=== PATIENT | female | born 1945 | race Caucasian/White ===

== ENCOUNTER 2016-08-11 07:51 | Inpatient (IN) | payer OTHER, SELFPAY ==
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
--- NOTE | ~2016-08-11 | DS ---
Discharge Summary [facility] [address] [place]. [address] NAME: MARE CORTEZ : 41 STATUS : ADM IN PAT#: [id number] AGE: 71 ADM/REG DATE : 08/11/16 MR#: [id number] REPORT SERV DATE: 08/14/16 DICTATED BY: Jason QUINN DATE: 08/14/16 REPORT STATUS : Draft TRANSCRIBED BY: MODPorfirio DATE: 08/14/16 ADMISSION DATE: 08/11/2016 DISCHARGE DATE: 08/14/2016 DISCHARGE DIAGNOSES: 1. Acute hypoxic hypercapnic respiratory failure, resolved. 2. Coronary disease with prior coronary artery bypass graft. 3. Suspected chronic obstructive pulmonary disease. 4. Ongoing tobacco abuse. 5. Type 2 diabetes, secondary to active prednisone use. 6. Acute on chronic systolic heart failure, ejection fraction 41%. 7. Demand ischemia secondary to hypoxia. 8. Chronic kidney disease, stage 2 to 3. ACTIVE CONSULTS: None. PROCEDURES: Myocardial perfusion imaging. BRIEF HOSPITAL COURSE: A 71-year-old female with known coronary disease and ongoing tobacco abuse was admitted with respiratory failure with x-ray evidence of pulmonary vascular congestion. The patient was treated with a combination of low-dose DARINEL inhibition, active diuretics, and oral Coreg. She responded very well to treatment with significant improvement in her oxygenation and symptoms. Because of the nature of her symptoms and history of coronary artery disease it was felt necessary to rule out ischemia as a possible underlying cause particularly given the number of years since her bypass surgery coupled with her ongoing tobacco abuse. Her myocardial perfusion imaging showed no evidence of ischemia, but quoted an ejection fraction of 41%. Recommendations were for medical management for the patient's creatinine, and she has tolerated low-dose DARINEL inhibition and this will be continued, we will couple this with active diuretic therapy, statin therapy, and Coreg. We strongly encouraged the patient to discontinue smoking. She did not qualify for home O2. The patient was felt stable to be discharged home on the with outpatient followup with her primary care provider in two to three weeks. DISCHARGE MEDICATIONS: Prescriptions provided at discharge include: 1. Aspirin 325 mg daily. 2. Lipitor 40 mg daily. 3. Coreg 6.25 mg b.i.d. 4. Lasix 40 mg q.a.m. 5. Lisinopril 5 mg daily. Because of the likelihood that she has underlying COPD with a mild exacerbation she will get three additional days of prednisone at 20 mg daily, then discontinue, and she has two days to finish on a five-day Levaquin course, this will also be provided at discharge. Further recommendations for ongoing treatment pending outpatient followup with her primary care provider. Of note, discharge creatinine is 1.22. Discharge Summary [address] [address] NAME: MARE CORTEZ : 41 STATUS : ADM IN [facility]#: [id number] AGE: 71 ADM/REG DATE : 08/11/16 MR#: [id number] REPORT SERV DATE: 08/14/16 DICTATED BY: Jason QUINN DATE: 08/14/16 REPORT STATUS : Draft TRANSCRIBED BY: VALDO DATE: 08/14/16 Of note, greater than 30 minutes was required to prepare discharge, to do discharge summary, to complete prescriptions, reconcile medications, and funeral counselor the patient regarding her new medications, and smoking cessation. [facility]/VALDO Jason Quinn M.D. / [id number] CC: Megha Xie M.D.
[2016-08-11 07:53] LABS: ALLENS TEST Pos; BE (BASE EXCESS) -6.9 MEQ/L (0 +/- 2.5); CARBOXYHEMOGLOBIN 2.3 % (0-3); DEVICE NRB; HCO3 (ACTUAL BICARBONATE) 23.6 MEQ/L (23-27); HEMOBLOGIN CONTENT 12.9 G/DL (12-16); INSTRUMENT SERIAL # 8087; METHEMOGLOBIN 0.1 % (0-3); O2 CONTENT 16.9 VOL% (18-24); OPERATOR ID 14335; PCO2 (CO2 TENSION) 73 MMHG (35-45); PO2 (O2 TENSION) 95 MMHG (79-93); SAMPLE Arterial; pH 7.13 (7.37-7.43)
[2016-08-11] MEDS ORDERED: *UNABLE3 (08:32)
[2016-08-11 08:33] LABS: BASOPHILS 0.3 %; BASOPHILS ABSOLUTE 0.05 10/3/uL (0.0-0.16); EOSINOPHILS 1.1 %; EOSINOPHILS ABSOLUTE 0.18 10/3/uL (0.0-0.53); HEMOGLOBIN 12.1 g/dL (12.0-16.0); IMMATURE GRANULOCYTES 0.3 %; IMMATURE GRANULOCYTES ABSOLUTE 0.05 10/3/uL (0.0-0.11); LYMPHOCYTES 26.5 %; LYMPHOCYTES ABSOLUTE 4.36 10/3/uL (0.67-4.30); MEAN CORPUS HGB CONC 31.8 g/dL (32.0-36.0); MEAN CORPUSCULAR HEMOGLOB 28.6 pg (26.0-34.0); MEAN CORPUSCULAR VOLUME 89.8 fL (80-100); MEAN PLATELET VOLUME 9.1 fL (9.2-13.0); MONOCYTES 5.7 %; MONOCYTES ABSOLUTE 0.93 10/3/uL (0.21-1.20); NEUTROPHILS 66.1 %; NEUTROPHILS ABSOLUTE 10.88 10/3/uL (2.02-8.40); PLATELET COUNT 377 10/3/uL (150-400); RBC DISTRIBUTION WIDTH 13.1 % (12.0-16.0); RED CELL COUNT 4.23 10/6/uL (4.0-5.6); WHITE BLOOD CELLS 16.5 10/3/uL (4.5-10.5)
[2016-08-11 08:36] LABS: MANUAL DIFF NO %
[2016-08-11 08:37] LABS: ASCORBIC ACID (UR NOT ORDER) NEG (NEG); BILIRUBIN, URINE NEGATIVE (NEG); ER URINALYSIS TAT 0 Hrs 00 Mins; KETONE, URINE NEGATIVE (NEG); LEUKOCYTE ESTERASE(NOT OR TRACE (NEG); NITRITE (URINE) NEG (NEG); WBC (NOT ORDERED) (RFLEX) < 1 (0-5)
[2016-08-11 08:50] LABS: INTERNATIONAL NORMAL RATI 1.1 UNITS (-); PARTIAL THROMBO TIME 26.9 SEC (22.5-37.2); PROTIME (NOT ORD) 14.1 SEC (12.0-14.5)
[2016-08-11 08:55] LABS: BUN (BLOOD UREA NITROGEN) 11 MG/DL (6-23); CALCIUM, SERUM 8.7 MG/DL (8.5-10.4); CHEST PAIN PROFILE TAT 0 Hrs 28 Mins; CHLORIDE, SERUM 106 MMOL/L (96-112); CO2 (CARBON DIOXIDE) 26 MMOL/L (24-34); CREATININE 1.33 MG/DL (0.55-1.02); GFR AFRICAN AMERICAN 46 ML/MIN (>=60); GFR NON AFRICAN AMERICAN 40 ML/MIN (>=60); GLUCOSE, SERUM 334 MG/DL (60-99); POTASSIUM, SERUM 4.1 MMOL/L (3.5-5.3); SODIUM, SERUM 140 MMOL/L (135-148); TROPONIN I <0.02 NG/ML (<0.05)
[2016-08-11 08:57] LABS: BE (BASE EXCESS) -4.7 MEQ/L (0 +/- 2.5); CARBOXYHEMOGLOBIN 2.4 % (0-3); HEMOBLOGIN CONTENT 12.3 G/DL (12-16); INSTRUMENT SERIAL # 8087; METHEMOGLOBIN 0.2 % (0-3); O2 CONTENT 16.1 VOL% (18-24); PCO2 (CO2 TENSION) 54 MMHG (35-45); PO2 (O2 TENSION) 89 MMHG (79-93); SAMPLE Arterial; pH 7.25 (7.37-7.43)
[2016-08-11 08:58] LABS: ALLENS TEST Pos; BIPAP 18/6 cm.H2O; OPERATOR ID 14335
[2016-08-11 14:46] LABS: ULTRASENSITIVE TSH 0.757 MCIU/ML (0.358-3.740)
[2016-08-11 14:47] LABS: TROPONIN I 0.11 NG/ML (<0.05)
[2016-08-11 15:37] LABS: ALLENS TEST Pos; BE (BASE EXCESS) -2.3 MEQ/L (0 +/- 2.5); BIPAP 18/6 cm.H2O; CARBOXYHEMOGLOBIN 0.3 % (0-3); HCO3 (ACTUAL BICARBONATE) 21.5 MEQ/L (23-27); HEMOBLOGIN CONTENT 11.6 G/DL (12-16); INSTRUMENT SERIAL # 8083; METHEMOGLOBIN 0.3 % (0-3); O2 CONTENT 16.1 VOL% (18-24); OPERATOR ID 32199; PCO2 (CO2 TENSION) 33 MMHG (35-45); PO2 (O2 TENSION) 114 MMHG (79-93); SAMPLE Arterial; pH 7.43 (7.37-7.43)
[2016-08-11 16:05] LABS: PROCALCITONIN 1.4 ng/mL (<0.5)
[2016-08-12 04:07] LABS: ALLENS TEST Pos; BE (BASE EXCESS) 2.3 MEQ/L (0 +/- 2.5); CARBOXYHEMOGLOBIN 0.6 % (0-3); DEVICE NC; HCO3 (ACTUAL BICARBONATE) 25.1 MEQ/L (23-27); HEMOBLOGIN CONTENT 11.2 G/DL (12-16); INSTRUMENT SERIAL # 8083; O2 CONTENT 14.9 VOL% (18-24); OPERATOR ID 14661; PCO2 (CO2 TENSION) 33 MMHG (35-45); PO2 (O2 TENSION) 69 MMHG (79-93); SAMPLE Arterial
[2016-08-12 06:57] LABS: HEMATOCRIT 30.7 % (36.0-48.0); HEMOGLOBIN 10.1 g/dL (12.0-16.0); MANUAL DIFF YES %; MEAN CORPUS HGB CONC 32.9 g/dL (32.0-36.0); MEAN CORPUSCULAR HEMOGLOB 27.8 pg (26.0-34.0); MEAN CORPUSCULAR VOLUME 84.6 fL (80-100); MEAN PLATELET VOLUME 8.9 fL (9.2-13.0); PLATELET COUNT 274 10/3/uL (150-400); RBC DISTRIBUTION WIDTH 13.3 % (12.0-16.0); RED CELL COUNT 3.63 10/6/uL (4.0-5.6); WHITE BLOOD CELLS 22.1 10/3/uL (4.5-10.5)
[2016-08-12 07:18] LABS: BUN (BLOOD UREA NITROGEN) 20 MG/DL (6-23); CALCIUM, SERUM 8.4 MG/DL (8.5-10.4); CHLORIDE, SERUM 101 MMOL/L (96-112); CHOLESTEROL 192 MG/DL (< 200); CO2 (CARBON DIOXIDE) 25 MMOL/L (24-34); CREATININE 1.38 MG/DL (0.55-1.02); GFR AFRICAN AMERICAN 44 ML/MIN (>=60); GFR NON AFRICAN AMERICAN 38 ML/MIN (>=60); GLUCOSE, SERUM 184 MG/DL (60-99); HDL CHOLESTEROL 48 MG/DL (> 49); LDL CHOLESTEROL 128 MG/DL (< 130); NON-HDL CHOLESTEROL 144 MG/DL (< 160); SODIUM, SERUM 138 MMOL/L (135-148); TRIGLYCERIDE 83 MG/DL (< 150); TROPONIN I 0.07 NG/ML (<0.05)
[2016-08-12 09:33] LABS: BAND NEUTROPHILS 1 %; LYMPHOCYTES 3 %; LYMPHOCYTES ABSOLUTE (CALC) 0.66 10/3/uL (0.67-4.30); MONOCYTES 4 %; MONOCYTES ABSOLUTE (CALC) 0.88 10/3/uL (0.21-1.20); NEUTROPHILS ABSOLUTE (CALC) 20.55 10/3/uL (2.02-8.40); PLATELET ESTIMATE ADQ (ADEQUATE); RBC MORPHOLOGY NORM (NORMAL); SEGMENTED NEUTROPHIL (0) 92 %; TOTAL NUCLEATED CELLS 100
[2016-08-12] MEDS ORDERED: BEN25 PO (13:47)
[2016-08-12] MEDS ORDERED: CENTRUM PO (13:47)
[2016-08-12] MEDS ORDERED: MULTIPLE SUPPLEMENTS PO (13:48)
[2016-08-13 00:26] LABS: POTASSIUM, SERUM 4.6 MMOL/L (3.5-5.3)
[2016-08-13 04:23] LABS: HEMATOCRIT 32.8 % (36.0-48.0); HEMOGLOBIN 10.9 g/dL (12.0-16.0); MEAN CORPUS HGB CONC 33.2 g/dL (32.0-36.0); MEAN CORPUSCULAR HEMOGLOB 28.5 pg (26.0-34.0); MEAN CORPUSCULAR VOLUME 85.6 fL (80-100); MEAN PLATELET VOLUME 9.4 fL (9.2-13.0); PLATELET COUNT 311 10/3/uL (150-400); RBC DISTRIBUTION WIDTH 13.5 % (12.0-16.0); RED CELL COUNT 3.83 10/6/uL (4.0-5.6); WHITE BLOOD CELLS 23.7 10/3/uL (4.5-10.5)
[2016-08-13 04:25] LABS: MANUAL DIFF YES %
[2016-08-13 04:39] LABS: CHLORIDE, SERUM 100 MMOL/L (96-112); CO2 (CARBON DIOXIDE) 25 MMOL/L (24-34); CREATININE 1.55 MG/DL (0.55-1.02); GFR AFRICAN AMERICAN 38 ML/MIN (>=60); GFR NON AFRICAN AMERICAN 33 ML/MIN (>=60); GLUCOSE, SERUM 206 MG/DL (60-99); POTASSIUM, SERUM 3.9 MMOL/L (3.5-5.3); SODIUM, SERUM 138 MMOL/L (135-148)
[2016-08-13 04:44] LABS: BUN (BLOOD UREA NITROGEN) 33 MG/DL (6-23); CALCIUM, SERUM 9.4 MG/DL (8.5-10.4)
[2016-08-13 05:07] LABS: BAND NEUTROPHILS 2 %; LYMPHOCYTES 4 %; LYMPHOCYTES ABSOLUTE (CALC) 0.95 10/3/uL (0.67-4.30); MONOCYTES 2 %; MONOCYTES ABSOLUTE (CALC) 0.47 10/3/uL (0.21-1.20); NEUTROPHILS ABSOLUTE (CALC) 22.28 10/3/uL (2.02-8.40); PLATELET ESTIMATE ADQ (ADEQUATE); RBC MORPHOLOGY NORM (NORMAL); SEGMENTED NEUTROPHIL (0) 92 %; TOTAL NUCLEATED CELLS 100
[2016-08-14 05:58] LABS: BASOPHILS 0.1 %; BASOPHILS ABSOLUTE 0.01 10/3/uL (0.0-0.16); EOSINOPHILS 0 %; HEMATOCRIT 34.6 % (36.0-48.0); HEMOGLOBIN 11.3 g/dL (12.0-16.0); IMMATURE GRANULOCYTES 0.3 %; IMMATURE GRANULOCYTES ABSOLUTE 0.05 10/3/uL (0.0-0.11); LYMPHOCYTES 7.5 %; MEAN CORPUS HGB CONC 32.7 g/dL (32.0-36.0); MEAN CORPUSCULAR HEMOGLOB 28.3 pg (26.0-34.0); MEAN CORPUSCULAR VOLUME 86.5 fL (80-100); MEAN PLATELET VOLUME 8.9 fL (9.2-13.0); MONOCYTES 7.2 %; MONOCYTES ABSOLUTE 1.35 10/3/uL (0.21-1.20); NEUTROPHILS 84.9 %; NEUTROPHILS ABSOLUTE 15.98 10/3/uL (2.02-8.40); PLATELET COUNT 298 10/3/uL (150-400); RBC DISTRIBUTION WIDTH 13.4 % (12.0-16.0); WHITE BLOOD CELLS 18.8 10/3/uL (4.5-10.5)
[2016-08-14 06:00] LABS: MANUAL DIFF NO %
[2016-08-14 06:25] LABS: BUN (BLOOD UREA NITROGEN) 35 MG/DL (6-23); CALCIUM, SERUM 8.9 MG/DL (8.5-10.4); CHLORIDE, SERUM 102 MMOL/L (96-112); CO2 (CARBON DIOXIDE) 27 MMOL/L (24-34); CREATININE 1.22 MG/DL (0.55-1.02); GFR AFRICAN AMERICAN 51 ML/MIN (>=60); GFR NON AFRICAN AMERICAN 44 ML/MIN (>=60); SODIUM, SERUM 141 MMOL/L (135-148)
[2016-08-14 06:28] LABS: GLUCOSE, SERUM 114 MG/DL (60-99)
[2016-08-14] MEDS ORDERED: ASAEC PO (09:15)
[2016-08-14] MEDS ORDERED: COREG6 PO (09:19)
[2016-08-14] MEDS ORDERED: LIPITOR40 PO (09:19)
[2016-08-14] MEDS ORDERED: L40 PO (09:20)
[2016-08-14] MEDS ORDERED: PRIN5 PO (09:21)
[2016-08-14] MEDS ORDERED: P20 PO (09:23)
[2016-08-14] MEDS ORDERED: LEVAQUIN750 MG PO (09:26)
[2016-12-03] MEDS ORDERED: KLOR-CON M2020 MEQ PO (13:51)
[2016-12-10] MEDS ORDERED: PLAVIX PO (08:28)
== END 2016-08-14 13:03 | disposition home or self-care (01) | DRG 291 ==
LOC: ER 07:51 → IMCU 10:30 → 7NO 08-12 21:17
PROVIDERS: Emergency Medicine; Internal Medicine
DX: I13.0 Hypertensive heart and chronic kidney disease with heart failure and stage 1 through stage 4 chronic kidney disease, or unspecified chronic kidney disease (principal); I50.43 Acute on chronic combined systolic (congestive) and diastolic (congestive) heart failure; J96.01 Acute respiratory failure with hypoxia; J96.02 Acute respiratory failure with hypercapnia; E87.2 Acidosis; I24.8 Other forms of acute ischemic heart disease; J44.1 Chronic obstructive pulmonary disease with (acute) exacerbation; N18.3 Chronic kidney disease, stage 3 (moderate); I25.10 Atherosclerotic heart disease of native coronary artery without angina pectoris; F17.210 Nicotine dependence, cigarettes, uncomplicated; I25.2 Old myocardial infarction; I25.5 Ischemic cardiomyopathy; D72.829 Elevated white blood cell count, unspecified; T38.0X5A Adverse effect of glucocorticoids and synthetic analogues, initial encounter; Z91.19 Patient's noncompliance with other medical treatment and regimen; Z95.1 Presence of aortocoronary bypass graft
CPT/HCPCS: 36600; 71010; 78452; 80048; 80061; 81001; 82805; 82962; 83036; 83735; 83880; 84132; 84145; 84443; 84484; 85025; 85610; 85730; 87641; 93005; 93017; 93306; 94640; 94660; 96374; 97165-GO; 99291; A9270-GY; A9502; J0153; J1956; J2930

== ENCOUNTER 2016-09-03 12:12 | Inpatient (IN) | payer OTHER, SELFPAY ==
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
--- NOTE | ~2016-09-03 | DS ---
Discharge Summary [facility] [address] [place]. [address] NAME: MARE CORTEZ : 41 STATUS : DIS IN PAT#: [id number] AGE: 71 ADM/REG DATE : 09/03/16 MR#: [id number] REPORT SERV DATE: 09/11/16 DICTATED BY: KELIN PELAEZ DATE: 09/10/16 REPORT STATUS : Draft TRANSCRIBED BY: MODL DATE: 09/10/16 ADMISSION DATE: 09/03/2016 DISCHARGE DATE: 09/10/2016 CONDITION ON DISCHARGE: Discharged to home. ADVICE UPON DISCHARGE: The patient to follow up with her oral surgeon within the next few days as scheduled so that she can have her teeth pulled before she is scheduled to see her modeling and simulation analyst, so that she can have her mitral valve replaced at a later time. DISPOSITION: Stable. DIAGNOSES ON DISCHARGE: 1. Acute systolic heart failure-resolved. Chronic systolic heart failure with an ejection fraction of about 40%-45%, which is stable. 2. Severe mitral regurgitation-the patient is definitely a candidate for mitral valve replacement, but before this her dental situation has to be addressed and the patient is actually being scheduled for dental extraction within the next few days, so she can have follow up with her modeling and simulation analyst and then later the CT surgeon, so she can have her mitral valve replaced. The patient is aware of this. 3. Acute hypoxic respiratory failure secondary to flash pulmonary edema, which has completely resolved. 4. Coronary artery disease, status post CABG in the past-this is stable. 5. Chronic kidney disease, stage 3, which is stable. 6. Chronic obstructive pulmonary disease which is stable. 7. Urinary tract infection with urine culture positive for E coli that is sensitive to cephalosporins. The patient has already received three days of IV Rocephin, so she will be sent home on Keflex 500 mg p.o. b.i.d. or cefuroxime 500 mg p.o. b.i.d. for four more days to finish the treatment for this urinary tract infection. CONSULTS OBTAINED DURING HOSPITALIZATION: Dr. Miramontes with [facility] and Cardiothoracic Surgery. PROCEDURES THAT PATIENT UNDERWENT DURING THIS HOSPITALIZATION: Include left heart catheterization by Dr. Bolton, ALOK and also a transthoracic echocardiogram. 1. Left heart catheterization showed coronary artery disease as described in the intermittent discharge summary with diffuse CAD basically. 2. Transthoracic echocardiogram showed mild LV enlargement with decrease in systolic function and inferior and inferolateral hypokinesis with an EF of about 40%. The patient does have LAE because of the severe mitral regurgitation. 3. ALOK showed EF of 43%, which is slightly better than 40%, I understand. No thrombus was found in either of the valves and mitral valve was structurally normal, but there was eccentric anteriorly directed severe mitral regurgitation and likely a PFO. The patient will hence require a valve replacement at a later time, which is going to be very soon as deemed by Cardiology and Cardiothoracic Surgery. BRIEF HOSPITAL COURSE: Please refer to interim discharge summary dictated by Dr. Butler on Discharge Summary [address] [address] NAME: MARE CORTEZ : 41 STATUS : DIS IN [facility]#: [id number] AGE: 71 ADM/REG DATE : 09/03/16 MR#: [id number] REPORT SERV DATE: 09/11/16 DICTATED BY: KELIN PELAEZ DATE: 09/10/16 REPORT STATUS : Draft TRANSCRIBED BY: VALDO DATE: 09/10/16 09/07/2016. I took over this patient's care on 09/08/2016. On the , , and , the patient's condition has pretty much remained very stable. She has been asymptomatic throughout and has tolerated her food well without any nausea, vomiting. She is ambulatory and she has no dizziness whatsoever, hence the patient is actually being discharged on 09/10/2016 as her valve replacement has been postponed given her dental status. She does have dental caries and two carious teeth, I believe, which do need extraction CLAUDIO and this will be accomplished as an outpatient. Hence, the patient is being sent home on the following medications. Her home medications now will include the following. 1. Cefuroxime 500 mg p.o. b.i.d. for four more days to finish up her treatment for UTI with E coli. 2. Benadryl 25 mg p.o. daily p.r.n. 3. Lipitor 40 mg p.o. daily. 4. Coreg 6.25 mg p.o. b.i.d. 5. Lisinopril 5 mg once a day. 6. Lasix 20 mg once a day. 7. Aspirin 81 mg once a day. The most recent labs that I have on this patient include the following. CBC that shows a WBC count of 7.9, hemoglobin 10.3, hematocrit 32.7, and platelet count of 303. Electrolyte profile that shows completely normal electrolytes BUN is 17, creatinine is 1.03, which is her baseline. As mentioned above, urine culture is positive for greater than 100,000 colony count per mL of E coli, which is pansensitive and sensitive to cephalosporins and hence the treatment. I have spent about 40 minutes in coordinating discharge care of this patient including face- to-face encounter and summarizing this discharge. TRINI/VALDO Kelin Pelaez M.D. / [id number] CC: Kelin Pelaez M.D.
--- NOTE | ~2016-09-03 | IDS ---
Interim Discharge Summary [facility] [address] [place]. [address] NAME: MARE CORTEZ : 43 STATUS : ADM Gil PAT#: [id number] AGE: 71 ADM/REG DATE : 09/03/16 MR#: [id number] REPORT SERV DATE: 09/08/16 DICTATED BY: DIEGO BECK II DATE: 09/07/16 REPORT STATUS : Draft TRANSCRIBED BY: MODL DATE: 09/07/16 ADMISSION DATE: 09/03/2016 DISCHARGE DATE: DATE OF INTERIM: 09/07/2016. INTERIM DIAGNOSES: 1. Acute systolic with EF of 43%. 2. Severe eccentric mitral regurgitation. 3. Acute hypoxic respiratory failure secondary to flash pulmonary edema on admission, now resolved. 4. Multivessel coronary artery disease with history of bypass, status post cardiac cath this admission, results below. 5. Chronic kidney disease stage II to III. 6. Chronic obstructive pulmonary disease. 7. Urinary tract infection, culture pending. 8. Poor dentition. CONSULTS: Dr. Miramontes with [facility] and Cardiothoracic Surgery. PROCEDURES: 1. Left heart catheterization by Dr. Bolton showing a 100% proximal RCA with patent graft to runoff vessel. 70% distal LAD with no patent graft to runoff vessel. 70% mid left circumflex with no evidence of prior grafting. Current grafts are CHAHAL to LAD, which is patent and SVG to distal RCA patent with nonobstructive anastomotic lesion. LVEDP 9. 2. Transthoracic echo showing mild LV enlargement, mild decrease in systolic function. Inferior and inferolateral hypokinesis. EF 40%. Left atrial enlargement. Aortic valve sclerosis without stenosis. 3. ALOK showing EF 43% and previously shown wall motion abnormalities consistent with prior [place]. No thrombus in left atrial appendage. Mitral valve was structurally normal; however, there was eccentric anteriorly directed severe mitral regurgitation and likely patent Chen ovale. BRIEF HISTORY OF PRESENT ILLNESS: The patient is a 71-year-old female who presented to [facility] due to acute shortness of breath concerning for flash pulmonary edema. For detailed history and physical examination, please see Dr. Cleary's note from 09/03/2016. HOSPITAL COURSE: On admission, she had a pH of 7.16, pCO2 of 55, PO2 of 75. BNP 1150. Chest x-ray with venous congestion and no infiltrate. CT of the chest showed no lung masses or infiltrates, essentially normal except for minimal bilateral pleural effusions. She was on 15 L by face mask and quickly able to be titrated off with diuretics. [facility] was consulted and concern for incomplete cardiac workup for recently diagnosed acute CHF as well as flash pulmonary edema in setting of likely jeagvngn-wo-oxauii mitral regurg. Cardiac cath and ALOK, results noted above, was subsequently performed showing severe eccentric mitral regurg and 70% LAD and left circumflex. Currently, Cardiothoracic Surgery has been consulted for Interim Discharge Summary [address] [address] NAME: MARE CORTEZ : 43 STATUS : ADM Gil PAT#: [id number] AGE: 71 ADM/REG DATE : 09/03/16 MR#: [id number] REPORT SERV DATE: 09/08/16 DICTATED BY: DIEGO BECK II DATE: 09/07/16 REPORT STATUS : Draft TRANSCRIBED BY: VALDO DATE: 09/07/16 consideration for possible mitral valve surgery or single-vessel bypass. During this time, she was also found have UTI and was placed on Rocephin, currently urine culture pending, growing gram-negative bacilli. Overall pending cardiothoracic consult. One of my colleagues from the hospitalist service will be taking over starting tomorrow. DELIO/VALDO Diego Beck II, MD / [id number]
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
--- NOTE | ~2016-09-03 | TEE ---
Transesophageal Echocardiogram [facility] [address] [place]. [address] NAME: MARE CORTEZ : 43 STATUS : ADM Gil PAT#: [id number] AGE: 71 ADM/REG DATE : 09/03/16 MR#: [id number] REPORT SERV DATE: 09/07/16 DICTATED BY: DATE: REPORT STATUS : Draft TRANSCRIBED BY: MODL DATE: 09/07/16 CHIEF COMPLAINT/REASON FOR STUDY: Assessment of mitral regurgitation. After obtaining informed consent, anesthesia was administered with IV propofol to achieve adequate conscious sedation. The transesophageal probe was readily inserted without complications. Salient 2D echocardiographic windows and 3D echocardiographic windows were obtained including color and Doppler assessment. ECHOCARDIOGRAPHIC FINDINGS: 1. Left ventricular systolic function is moderately decreased with a calculated ejection fraction of 43%. There is an inferior and posterior wall motion abnormality from the level of the septum to the mid wall likely consistent with a prior myocardial infarction. The right ventricle is normal in size and systolic function. 2. The left atrium is dilated in size. There was no evidence of left atrium or left atrial appendage thrombus. The right atrium appeared mildly dilated in size. 3. The left atrial appendage was interrogated at multiple levels and depths and there was no thrombus present in the left atrial appendage at the time of ALOK. 4. The mitral valve was structurally normal. However, there was eccentric anteriorly directed severe mitral regurgitation noted by color flow and Doppler assessment. The full visualization of the jet for PISA calculation could not be performed due to jet eccentricity. 5. The tricuspid valve was normal with preserved leaflet motion. There was no significant tricuspid regurgitation or stenosis seen with color-flow Doppler assessment. 6. Aortic valve was normal and trileaflet without stenosis or regurgitation. 7. The pulmonary valve was well visualized and without significant valvular regurgitation via color flow Doppler assessment. 8. The aorta was normal in caliber; however, there was moderate atherosclerotic plaque visualized within the thoracic aorta. 9. The pericardium was normal. No pericardial effusion was visualized. 10.The intra-atrial septum had small defect with [id number] color flow consistent with a small patent foramen ovale. 11.The right and left superior pulmonary veins were interrogated. There was evidence of systolic flow reversal consistent with severe mitral regurgitation. IMPRESSION: 1. Moderately decreased left ventricular systolic function with a calculated ejection fraction of 43%. 2. Inferior basilar wall motion abnormality. 3. Eccentric severe mitral regurgitation as detailed above. 4. Likely patent foramen ovale. ABEL/VALDO Gisele Rosas M.D. Transesophageal Echocardiogram [address] [address] NAME: MARE CORTEZ : 43 STATUS : ADM Gil PAT#: [id number] AGE: 71 ADM/REG DATE : 09/03/16 MR#: [id number] REPORT SERV DATE: 09/07/16 DICTATED BY: DATE: REPORT STATUS : Draft TRANSCRIBED BY: VALDO DATE: 09/07/16 / [id number] CC: Melo Butler II, MD
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
[2016-09-03 11:06] LABS: ALLENS TEST Pos; BE (BASE EXCESS) -9.5 MEQ/L (0 +/- 2.5); HCO3 (ACTUAL BICARBONATE) 19.2 MEQ/L (23-27); HEMOBLOGIN CONTENT 11.2 G/DL (12-16); INSTRUMENT SERIAL # 8087; METHEMOGLOBIN 0.2 % (0-3); PCO2 (CO2 TENSION) 55 MMHG (35-45); PEEP/CPAP 7.5 cm.H2O; PO2 (O2 TENSION) 75 MMHG (79-93); SAMPLE Arterial; pH 7.16 (7.37-7.43)
[2016-09-03 11:23] LABS: BASOPHILS 0.2 %; BASOPHILS ABSOLUTE 0.02 10/3/uL (0.0-0.16); EOSINOPHILS 2.7 %; EOSINOPHILS ABSOLUTE 0.24 10/3/uL (0.0-0.53); HEMATOCRIT 33.2 % (36.0-48.0); HEMOGLOBIN 10.4 g/dL (12.0-16.0); IMMATURE GRANULOCYTES 0.2 %; IMMATURE GRANULOCYTES ABSOLUTE 0.02 10/3/uL (0.0-0.11); LYMPHOCYTES 21.2 %; LYMPHOCYTES ABSOLUTE 1.87 10/3/uL (0.67-4.30); MEAN CORPUS HGB CONC 31.3 g/dL (32.0-36.0); MEAN PLATELET VOLUME 9.2 fL (9.2-13.0); MONOCYTES 5.4 %; MONOCYTES ABSOLUTE 0.48 10/3/uL (0.21-1.20); NEUTROPHILS 70.3 %; PLATELET COUNT 321 10/3/uL (150-400); RBC DISTRIBUTION WIDTH 14.1 % (12.0-16.0); RED CELL COUNT 3.71 10/6/uL (4.0-5.6)
[2016-09-03 11:34] LABS: MANUAL DIFF NO %; MEAN CORPUSCULAR VOLUME 89.5 fL (80-100); WHITE BLOOD CELLS 8.8 10/3/uL (4.5-10.5)
[2016-09-03 11:38] LABS: INTERNATIONAL NORMAL RATI 1.1 UNITS (-); PARTIAL THROMBO TIME 27.5 SEC (22.5-37.2); PROTIME (NOT ORD) 14.5 SEC (12.0-14.5)
[2016-09-03 11:41] LABS: LACTATE 2.4 MMOL/L (0.3-2.4)
[2016-09-03 11:42] LABS: CALCIUM, SERUM 8.7 MG/DL (8.5-10.4); CHEST PAIN PROFILE TAT 0 Hrs 25 Mins; CHLORIDE, SERUM 109 MMOL/L (96-112); CO2 (CARBON DIOXIDE) 25 MMOL/L (24-34); CREATININE 1.34 MG/DL (0.55-1.02); GFR AFRICAN AMERICAN 45 ML/MIN (>=60); GFR NON AFRICAN AMERICAN 39 ML/MIN (>=60); POTASSIUM, SERUM 4.5 MMOL/L (3.5-5.3); SODIUM, SERUM 143 MMOL/L (135-148); TROPONIN I <0.02 NG/ML (<0.05)
[2016-09-03 11:43] LABS: BUN (BLOOD UREA NITROGEN) 23 MG/DL (6-23); GLUCOSE, SERUM 309 MG/DL (60-99)
[~2016-09-03 12:12] MED LIST: *UNABLE3; ASAEC PO; BEN25 PO; CENTRUM PO; COREG6 PO; L40 PO; LEVAQUIN750 MG PO; LIPITOR40 PO; MULTIPLE SUPPLEMENTS PO; P20 PO; PRIN5 PO
[2016-09-04 04:50] LABS: BASOPHILS 0 %; EOSINOPHILS 0 %; HEMATOCRIT 30.7 % (36.0-48.0); HEMOGLOBIN 9.9 g/dL (12.0-16.0); IMMATURE GRANULOCYTES 0.1 %; IMMATURE GRANULOCYTES ABSOLUTE 0.01 10/3/uL (0.0-0.11); LYMPHOCYTES 8.7 %; LYMPHOCYTES ABSOLUTE 0.84 10/3/uL (0.67-4.30); MEAN CORPUS HGB CONC 32.2 g/dL (32.0-36.0); MEAN PLATELET VOLUME 9.4 fL (9.2-13.0); MONOCYTES 2.6 %; MONOCYTES ABSOLUTE 0.25 10/3/uL (0.21-1.20); NEUTROPHILS 88.6 %; NEUTROPHILS ABSOLUTE 8.52 10/3/uL (2.02-8.40); PLATELET COUNT 292 10/3/uL (150-400); RBC DISTRIBUTION WIDTH 13.7 % (12.0-16.0); RED CELL COUNT 3.54 10/6/uL (4.0-5.6); WHITE BLOOD CELLS 9.6 10/3/uL (4.5-10.5)
[2016-09-04 04:51] LABS: MANUAL DIFF NO %; MEAN CORPUSCULAR VOLUME 86.7 fL (80-100)
[2016-09-04 04:55] LABS: BUN (BLOOD UREA NITROGEN) 22 MG/DL (6-23); CALCIUM, SERUM 8.9 MG/DL (8.5-10.4); CHLORIDE, SERUM 109 MMOL/L (96-112); CO2 (CARBON DIOXIDE) 24 MMOL/L (24-34); GFR AFRICAN AMERICAN 58 ML/MIN (>=60); GFR NON AFRICAN AMERICAN 50 ML/MIN (>=60); GLUCOSE, SERUM 132 MG/DL (60-99); POTASSIUM, SERUM 3.7 MMOL/L (3.5-5.3); SODIUM, SERUM 143 MMOL/L (135-148)
[2016-09-04 17:18] LABS: ALLENS TEST Pos; BE (BASE EXCESS) 1.9 MEQ/L (0 +/- 2.5); CARBOXYHEMOGLOBIN 0.5 % (0-3); HEMOBLOGIN CONTENT 10.3 G/DL (12-16); INSTRUMENT SERIAL # 8083; METHEMOGLOBIN 0.1 % (0-3); O2 CONTENT 13.9 VOL% (18-24); OPERATOR ID 32199; PCO2 (CO2 TENSION) 34 MMHG (35-45); PO2 (O2 TENSION) 80 MMHG (79-93); SAMPLE Arterial; pH 7.49 (7.37-7.43)
[2016-09-05 04:11] LABS: BASOPHILS 0.1 %; BASOPHILS ABSOLUTE 0.01 10/3/uL (0.0-0.16); EOSINOPHILS 0.9 %; EOSINOPHILS ABSOLUTE 0.12 10/3/uL (0.0-0.53); HEMATOCRIT 31.5 % (36.0-48.0); HEMOGLOBIN 10.1 g/dL (12.0-16.0); IMMATURE GRANULOCYTES 0.2 %; IMMATURE GRANULOCYTES ABSOLUTE 0.03 10/3/uL (0.0-0.11); LYMPHOCYTES 28.9 %; LYMPHOCYTES ABSOLUTE 3.77 10/3/uL (0.67-4.30); MEAN CORPUS HGB CONC 32.1 g/dL (32.0-36.0); MEAN CORPUSCULAR HEMOGLOB 28.3 pg (26.0-34.0); MEAN CORPUSCULAR VOLUME 88.2 fL (80-100); MEAN PLATELET VOLUME 9.1 fL (9.2-13.0); MONOCYTES 8.3 %; MONOCYTES ABSOLUTE 1.08 10/3/uL (0.21-1.20); NEUTROPHILS 61.6 %; NEUTROPHILS ABSOLUTE 8.04 10/3/uL (2.02-8.40); PLATELET COUNT 308 10/3/uL (150-400); RBC DISTRIBUTION WIDTH 13.9 % (12.0-16.0); RED CELL COUNT 3.57 10/6/uL (4.0-5.6); WHITE BLOOD CELLS 13.1 10/3/uL (4.5-10.5)
[2016-09-05 04:12] LABS: MANUAL DIFF NO %
[2016-09-05 04:23] LABS: CALCIUM, SERUM 8.8 MG/DL (8.5-10.4); CHLORIDE, SERUM 107 MMOL/L (96-112); CREATININE 1.16 MG/DL (0.55-1.02); GFR AFRICAN AMERICAN 54 ML/MIN (>=60); GFR NON AFRICAN AMERICAN 47 ML/MIN (>=60); GLUCOSE, SERUM 106 MG/DL (60-99); POTASSIUM, SERUM 3.8 MMOL/L (3.5-5.3); SODIUM, SERUM 144 MMOL/L (135-148)
[2016-09-05 04:24] LABS: BUN (BLOOD UREA NITROGEN) 27 MG/DL (6-23); CO2 (CARBON DIOXIDE) 29 MMOL/L (24-34)
[2016-09-06 04:39] LABS: BASOPHILS 0.1 %; BASOPHILS ABSOLUTE 0.01 10/3/uL (0.0-0.16); EOSINOPHILS ABSOLUTE 0.21 10/3/uL (0.0-0.53); HEMATOCRIT 32.2 % (36.0-48.0); IMMATURE GRANULOCYTES 0.3 %; IMMATURE GRANULOCYTES ABSOLUTE 0.02 10/3/uL (0.0-0.11); LYMPHOCYTES 47.3 %; MEAN CORPUS HGB CONC 31.1 g/dL (32.0-36.0); MEAN CORPUSCULAR HEMOGLOB 27.6 pg (26.0-34.0); MEAN PLATELET VOLUME 9.5 fL (9.2-13.0); MONOCYTES 12.5 %; MONOCYTES ABSOLUTE 0.87 10/3/uL (0.21-1.20); NEUTROPHILS 36.8 %; NEUTROPHILS ABSOLUTE 2.56 10/3/uL (2.02-8.40); PLATELET COUNT 309 10/3/uL (150-400); RBC DISTRIBUTION WIDTH 14.3 % (12.0-16.0); RED CELL COUNT 3.62 10/6/uL (4.0-5.6)
[2016-09-06 04:43] LABS: MANUAL DIFF NO %
[2016-09-06 04:49] LABS: CALCIUM, SERUM 8.7 MG/DL (8.5-10.4); CHLORIDE, SERUM 106 MMOL/L (96-112); CO2 (CARBON DIOXIDE) 30 MMOL/L (24-34); CREATININE 1.07 MG/DL (0.55-1.02); GFR AFRICAN AMERICAN 60 ML/MIN (>=60); GFR NON AFRICAN AMERICAN 51 ML/MIN (>=60); GLUCOSE, SERUM 100 MG/DL (60-99); POTASSIUM, SERUM 3.9 MMOL/L (3.5-5.3); SODIUM, SERUM 141 MMOL/L (135-148)
[2016-09-06 04:50] LABS: BUN (BLOOD UREA NITROGEN) 20 MG/DL (6-23)
[2016-09-06 11:08] LABS: ASCORBIC ACID (UR NOT ORDER) NEG (NEG); BILIRUBIN, URINE NEGATIVE (NEG); KETONE, URINE NEGATIVE (NEG); LEUKOCYTE ESTERASE(NOT OR LARGE (NEG)
[2016-09-06 11:13] LABS: WBC (NOT ORDERED) (RFLEX) > 182 (0-5)
[2016-09-07 05:40] LABS: BASOPHILS 0.3 %; BASOPHILS ABSOLUTE 0.02 10/3/uL (0.0-0.16); EOSINOPHILS 4.1 %; EOSINOPHILS ABSOLUTE 0.28 10/3/uL (0.0-0.53); HEMOGLOBIN 10.9 g/dL (12.0-16.0); IMMATURE GRANULOCYTES 0.1 %; IMMATURE GRANULOCYTES ABSOLUTE 0.01 10/3/uL (0.0-0.11); LYMPHOCYTES 40.1 %; LYMPHOCYTES ABSOLUTE 2.71 10/3/uL (0.67-4.30); MEAN CORPUS HGB CONC 32.1 g/dL (32.0-36.0); MEAN CORPUSCULAR HEMOGLOB 28.6 pg (26.0-34.0); MEAN CORPUSCULAR VOLUME 89.2 fL (80-100); MEAN PLATELET VOLUME 9.2 fL (9.2-13.0); MONOCYTES 14.1 %; MONOCYTES ABSOLUTE 0.95 10/3/uL (0.21-1.20); NEUTROPHILS 41.3 %; NEUTROPHILS ABSOLUTE 2.79 10/3/uL (2.02-8.40); PLATELET COUNT 316 10/3/uL (150-400); RBC DISTRIBUTION WIDTH 14.1 % (12.0-16.0); RED CELL COUNT 3.81 10/6/uL (4.0-5.6); WHITE BLOOD CELLS 6.8 10/3/uL (4.5-10.5)
[2016-09-07 05:43] LABS: MANUAL DIFF NO %
[2016-09-07 05:56] LABS: CALCIUM, SERUM 8.9 MG/DL (8.5-10.4); CHLORIDE, SERUM 108 MMOL/L (96-112); CO2 (CARBON DIOXIDE) 29 MMOL/L (24-34); CREATININE 1.18 MG/DL (0.55-1.02); GFR AFRICAN AMERICAN 53 ML/MIN (>=60); GFR NON AFRICAN AMERICAN 46 ML/MIN (>=60); POTASSIUM, SERUM 4.1 MMOL/L (3.5-5.3); SODIUM, SERUM 145 MMOL/L (135-148)
[2016-09-07 06:01] LABS: BUN (BLOOD UREA NITROGEN) 26 MG/DL (6-23); CHOL/HDL RATIO(NOT ORDER) 2.9 (0-5); CHOLESTEROL 110 MG/DL (< 200); GLUCOSE, SERUM 128 MG/DL (60-99); HDL CHOLESTEROL 38 MG/DL (> 49); LDL CHOLESTEROL 41 MG/DL (< 130); NON-HDL CHOLESTEROL 72 MG/DL (< 160); TRIGLYCERIDE 155 MG/DL (< 150)
[2016-09-08 04:54] LABS: BASOPHILS 0.3 %; BASOPHILS ABSOLUTE 0.02 10/3/uL (0.0-0.16); EOSINOPHILS 4.1 %; EOSINOPHILS ABSOLUTE 0.31 10/3/uL (0.0-0.53); HEMATOCRIT 32.3 % (36.0-48.0); HEMOGLOBIN 9.9 g/dL (12.0-16.0); IMMATURE GRANULOCYTES 0.3 %; IMMATURE GRANULOCYTES ABSOLUTE 0.02 10/3/uL (0.0-0.11); LYMPHOCYTES 35.4 %; LYMPHOCYTES ABSOLUTE 2.67 10/3/uL (0.67-4.30); MEAN CORPUS HGB CONC 30.7 g/dL (32.0-36.0); MEAN CORPUSCULAR HEMOGLOB 27.6 pg (26.0-34.0); MEAN PLATELET VOLUME 9.3 fL (9.2-13.0); MONOCYTES 10.7 %; MONOCYTES ABSOLUTE 0.81 10/3/uL (0.21-1.20); NEUTROPHILS 49.2 %; NEUTROPHILS ABSOLUTE 3.71 10/3/uL (2.02-8.40); PLATELET COUNT 303 10/3/uL (150-400); RED CELL COUNT 3.59 10/6/uL (4.0-5.6); WHITE BLOOD CELLS 7.5 10/3/uL (4.5-10.5)
[2016-09-08 04:55] LABS: MANUAL DIFF NO %
[2016-09-08 04:58] LABS: CALCIUM, SERUM 8.2 MG/DL (8.5-10.4); CHLORIDE, SERUM 112 MMOL/L (96-112); CO2 (CARBON DIOXIDE) 25 MMOL/L (24-34); CREATININE 0.87 MG/DL (0.55-1.02); GFR AFRICAN AMERICAN 77 ML/MIN (>=60); GFR NON AFRICAN AMERICAN 66 ML/MIN (>=60); GLUCOSE, SERUM 106 MG/DL (60-99); POTASSIUM, SERUM 4.6 MMOL/L (3.5-5.3); SODIUM, SERUM 146 MMOL/L (135-148)
[2016-09-08 05:00] LABS: BUN (BLOOD UREA NITROGEN) 18 MG/DL (6-23)
[2016-09-09 04:02] LABS: BASOPHILS 0.3 %; BASOPHILS ABSOLUTE 0.02 10/3/uL (0.0-0.16); EOSINOPHILS 4.1 %; EOSINOPHILS ABSOLUTE 0.31 10/3/uL (0.0-0.53); HEMATOCRIT 31.5 % (36.0-48.0); HEMOGLOBIN 9.8 g/dL (12.0-16.0); IMMATURE GRANULOCYTES 0.4 %; IMMATURE GRANULOCYTES ABSOLUTE 0.03 10/3/uL (0.0-0.11); LYMPHOCYTES 31.9 %; LYMPHOCYTES ABSOLUTE 2.44 10/3/uL (0.67-4.30); MEAN CORPUS HGB CONC 31.1 g/dL (32.0-36.0); MEAN CORPUSCULAR HEMOGLOB 27.9 pg (26.0-34.0); MEAN CORPUSCULAR VOLUME 89.7 fL (80-100); MEAN PLATELET VOLUME 9.1 fL (9.2-13.0); MONOCYTES 14.9 %; MONOCYTES ABSOLUTE 1.14 10/3/uL (0.21-1.20); NEUTROPHILS 48.4 %; PLATELET COUNT 309 10/3/uL (150-400); RED CELL COUNT 3.51 10/6/uL (4.0-5.6); WHITE BLOOD CELLS 7.6 10/3/uL (4.5-10.5)
[2016-09-09 04:03] LABS: MANUAL DIFF NO %
[2016-09-09 04:20] LABS: BUN (BLOOD UREA NITROGEN) 16 MG/DL (6-23); CALCIUM, SERUM 8.8 MG/DL (8.5-10.4); CHLORIDE, SERUM 107 MMOL/L (96-112); CO2 (CARBON DIOXIDE) 25 MMOL/L (24-34); CREATININE 1.01 MG/DL (0.55-1.02); GFR AFRICAN AMERICAN 64 ML/MIN (>=60); GFR NON AFRICAN AMERICAN 55 ML/MIN (>=60); GLUCOSE, SERUM 108 MG/DL (60-99); POTASSIUM, SERUM 4.2 MMOL/L (3.5-5.3); SODIUM, SERUM 142 MMOL/L (135-148)
[2016-09-10 04:55] LABS: BASOPHILS 0.3 %; BASOPHILS ABSOLUTE 0.02 10/3/uL (0.0-0.16); EOSINOPHILS 3.4 %; EOSINOPHILS ABSOLUTE 0.27 10/3/uL (0.0-0.53); HEMATOCRIT 32.7 % (36.0-48.0); HEMOGLOBIN 10.3 g/dL (12.0-16.0); IMMATURE GRANULOCYTES 0.3 %; IMMATURE GRANULOCYTES ABSOLUTE 0.02 10/3/uL (0.0-0.11); LYMPHOCYTES 39.3 %; LYMPHOCYTES ABSOLUTE 3.12 10/3/uL (0.67-4.30); MEAN CORPUS HGB CONC 31.5 g/dL (32.0-36.0); MEAN CORPUSCULAR HEMOGLOB 27.8 pg (26.0-34.0); MEAN CORPUSCULAR VOLUME 88.4 fL (80-100); MEAN PLATELET VOLUME 9.3 fL (9.2-13.0); MONOCYTES 14.1 %; MONOCYTES ABSOLUTE 1.12 10/3/uL (0.21-1.20); NEUTROPHILS 42.6 %; NEUTROPHILS ABSOLUTE 3.38 10/3/uL (2.02-8.40); PLATELET COUNT 303 10/3/uL (150-400); WHITE BLOOD CELLS 7.9 10/3/uL (4.5-10.5)
[2016-09-10 04:56] LABS: MANUAL DIFF NO %
[2016-09-10 05:04] LABS: BUN (BLOOD UREA NITROGEN) 17 MG/DL (6-23); CALCIUM, SERUM 8.7 MG/DL (8.5-10.4); CHLORIDE, SERUM 107 MMOL/L (96-112); CO2 (CARBON DIOXIDE) 26 MMOL/L (24-34); CREATININE 1.03 MG/DL (0.55-1.02); GFR AFRICAN AMERICAN 62 ML/MIN (>=60); GFR NON AFRICAN AMERICAN 54 ML/MIN (>=60); GLUCOSE, SERUM 113 MG/DL (60-99); SODIUM, SERUM 143 MMOL/L (135-148)
[2016-09-10] MEDS ORDERED: L20 PO ×2 (13:20→13:21)
[2016-09-10] MEDS ORDERED: CEFT5 (13:21)
[2016-09-10] MEDS ORDERED: ASAB PO (13:22)
[2016-12-03] MEDS ORDERED: KLOR-CON M2020 MEQ PO (13:51)
[2016-12-10] MEDS ORDERED: PLAVIX PO (08:28)
== END 2016-09-10 13:53 | disposition home or self-care (01) | DRG 286 ==
LOC: ER 12:12 → CDU1 15:03 → CDU2 15:41 → 7NO 09-05 08:17
PROVIDERS: Emergency Medicine; Internal Medicine; Internal Medicine Cardiovascular Disease
PROC: 4A023N7 Measurement of Cardiac Sampling and Pressure, Left Heart, Percutaneous Approach (ICD-10-PCS; principal; 2016-09-07)
PROC: B2111ZZ Fluoroscopy of Multiple Coronary Arteries using Low Osmolar Contrast (ICD-10-PCS; 2016-09-07)
PROC: B2121ZZ Fluoroscopy of Single Coronary Artery Bypass Graft using Low Osmolar Contrast (ICD-10-PCS; 2016-09-07)
PROC: B2181ZZ Fluoroscopy of Left Internal Mammary Bypass Graft using Low Osmolar Contrast (ICD-10-PCS; 2016-09-07)
PROC: B2151ZZ Fluoroscopy of Left Heart using Low Osmolar Contrast (ICD-10-PCS; 2016-09-07)
PROC: B246ZZ4 Ultrasonography of Right and Left Heart, Transesophageal (ICD-10-PCS; 2016-09-07)
DX: I13.0 Hypertensive heart and chronic kidney disease with heart failure and stage 1 through stage 4 chronic kidney disease, or unspecified chronic kidney disease (principal); J96.01 Acute respiratory failure with hypoxia; E87.2 Acidosis; I47.2 Ventricular tachycardia; N18.3 Chronic kidney disease, stage 3 (moderate); I50.23 Acute on chronic systolic (congestive) heart failure; N39.0 Urinary tract infection, site not specified; Q21.1 Atrial septal defect; I25.10 Atherosclerotic heart disease of native coronary artery without angina pectoris; F17.210 Nicotine dependence, cigarettes, uncomplicated; J44.9 Chronic obstructive pulmonary disease, unspecified; I25.2 Old myocardial infarction; I34.0 Nonrheumatic mitral (valve) insufficiency; I25.5 Ischemic cardiomyopathy; E78.00 Pure hypercholesterolemia, unspecified; K04.7 Periapical abscess without sinus; R51 Headache; B96.20 Unspecified Escherichia coli [E. coli] as the cause of diseases classified elsewhere; Z95.5 Presence of coronary angioplasty implant and graft; Z95.1 Presence of aortocoronary bypass graft; Z82.49 Family history of ischemic heart disease and other diseases of the circulatory system
CPT/HCPCS: 36600; 71010; 71250; 76376; 76705; 80048; 80061; 81001; 82805; 83605; 83735; 83880; 84484; 85025; 85610; 85730; 87077; 87086; 87186; 93005; 93308; 93312; 93320; 93325; 93459; 94640; 94644; 94660; 96374; 96375; 99152; 99153; 99291; A9270-GY; C1769; J2250; J2930; J3010; Q9967